=== PATIENT | female | born 1985 | race Hispanic/Latino ===

== ENCOUNTER 2017-07-27 09:18 | Emergency (ER) | payer OTHER | END 2017-07-27 10:17 | disposition home or self-care (01) | LOC: M ED 09:18 | DX: N90.7 Vulvar cyst (principal) | CPT/HCPCS: 81025 ==

== ENCOUNTER 2017-09-23 12:58 | Emergency (ER) | payer OTHER | END 2017-09-23 13:36 | disposition home or self-care (01) | LOC: M ED 12:58 | DX: J02.0 Streptococcal pharyngitis (principal); R01.1 Cardiac murmur, unspecified; F17.210 Nicotine dependence, cigarettes, uncomplicated | CPT/HCPCS: 87880 ==

== ENCOUNTER → 2018-02-09 | Outpatient (CLI) | payer OTHER ==
[2018-02-09 13:56] LABS: BASO % 0.3 % (0.0-1.0); EOS # 0.1 10^3/uL (0.0-0.50); HEMOGLOBIN 13.5 g/dl (12.0-15.5); LYMPH # 1.9 10^3/uL (1.5-4.5); LYMPH % 32.4 % (24.0-44.0); MEAN CORPUSCULAR HEMOGLOBIN 32.4 pg (27.0-33.0); MEAN CORPUSCULAR HGB CONC 34.6 g/dl (32.0-36.5); MEAN CORPUSCULAR VOLUME 93.5 fl (80.0-96.0); MONO # 0.8 10^3/uL (0.0-0.8); MONO % 13.6 % (0.0-5.0); NEUTROPHILS # 3.1 10^3/uL (1.8-7.7); NEUTROPHILS % 52.7 % (36.0-66.0); PLATELET COUNT, AUTOMATED 299 10^3/uL (150-450); RED BLOOD COUNT 4.17 10^6/uL (4.00-5.40); RED CELL DISTRIBUTION WIDTH 13.6 % (11.5-14.5); WHITE BLOOD COUNT 5.8 10^3/uL (4.0-10.0)
[2018-02-09 14:47] LABS: HEPATITIS C VIRUS ABY INDEX 0.1 INDEX (<0.8)
[2018-02-09 14:47] LABS: HBsAg Prenatal NEGATIVE (NEGATIVE); HIV 1&2 SCREEN CENTAUR NEGATIVE (NEGATIVE); RUBELLA IgG QUALITATIVE IMMUNE (IMMUNE)
[2018-02-09 15:49] LABS: CHLAMYDIA DNA AMPLIFICATION NEGATIVE (NEGATIVE); GC DNA AMPLIFICATION NEGATIVE (NEGATIVE)
== END ==
LOC: M SMT 11:25
DX: Z36.89 Encounter for other specified antenatal screening (principal)
CPT/HCPCS: 86762

== ENCOUNTER → 2018-03-08 | Outpatient (CLI) | payer OTHER ==
[~2018-03-08] MED LIST: MAGICMW MT; PENI500T PO
[2018-03-08 13:37] LABS: FREE T4 0.87 NG/DL (0.76-1.46); THYROID STIMULATING HORMONE 0.785 uIU/ML (0.358-3.740)
== END ==
LOC: M SMT 10:36
PROVIDERS: ATTEND Advanced Practice Midwife
DX: O26.811 Pregnancy related exhaustion and fatigue, first trimester (principal)

== ENCOUNTER → 2018-04-05 | Outpatient (CLI) | payer OTHER | LOC: M SMT 10:44 | PROVIDERS: ATTEND Advanced Practice Midwife | DX: Z34.82 Encounter for supervision of other normal pregnancy, second trimester (principal); Z36.89 Encounter for other specified antenatal screening ==

== ENCOUNTER → 2018-04-23 | Outpatient (CLI) | payer OTHER ==
--- NOTE | 2018-04-23 11:36 | REP ---
Clinical: Anatomical evaluation. Comparison: None . Findings: Examination demonstrates a single live intrauterine in cephalic presentation. motion is identified by technologist. Placenta is noted posterior and grade grade zero without evidence for placenta previa or abruption. Amniotic fluid volume is normal. Cervix measures 3.3 cm in length and appears closed. No evidence for nuchal cord. Gestational age by LMP 17 weeks 6 days with IDALMIS 09/25/2018 . Gestational age by current measurements 18 weeks 3 days with IDALMIS 09/21/2018 . FHR equals 132 beats per minute. BPD 4.1 cm 18 weeks 3 days HC 15.0 cm 18 weeks 0 days AC 12.5 cm 18 weeks 1 day FL 2.9 cm 18 weeks 5 days HL 2.7 cm 18 weeks 4 days HC/AC ratio 1.19 Estimated weight 239 grams ( 67th percentile). Anatomical assessment demonstrates normal structures including cranium, choroid plexus, cavum, cerebellum/posterior fossa, facial features, lungs, four-chamber heart/ventricular outflow tracts, diaphragm, stomach, cord insertion/three-vessel cord, kidneys/bladder, spine, and extremities. Impression: Single live intrauterine in cephalic presentation demonstrating appropriate interval growth. Anatomical assessment is complete and essentially normal. Mild renal pelviectasis falls within normal range for age. Electronically Signed by Fabrice Hi MD 04/23/2018 11:21 A
== END ==
LOC: M RAD 10:31
PROVIDERS: ATTEND Advanced Practice Midwife
DX: Z34.82 Encounter for supervision of other normal pregnancy, second trimester (principal); Z3A.18 18 weeks gestation of pregnancy

== ENCOUNTER → 2018-06-29 | Outpatient (REF) | payer OTHER | LOC: M LAB REF 12:44 | PROVIDERS: ATTEND Advanced Practice Midwife | DX: Z34.82 Encounter for supervision of other normal pregnancy, second trimester (principal) ==

== ENCOUNTER 2018-07-01 10:31 | Outpatient (CLI) | payer OTHER ==
[~2018-07-01] VITALS: Ht 157.5 cm; Wt 58.2 kg
[2018-07-01 10:50] VITALS: BP 109/61
== END 2018-07-01 11:50 | disposition home or self-care (01) ==
LOC: M LDO 10:31
PROVIDERS: ATTEND Specialist
DX: O26.852 Spotting complicating pregnancy, second trimester (principal); Z3A.27 27 weeks gestation of pregnancy

== ENCOUNTER → 2018-07-11 | Outpatient (CLI) | payer OTHER ==
[2018-07-11 13:52] LABS: HEMATOCRIT 36.8 % (36.0-47.0); HEMOGLOBIN 12.1 g/dl (12.0-15.5); MEAN CORPUSCULAR HEMOGLOBIN 31.9 pg (27.0-33.0); MEAN CORPUSCULAR HGB CONC 32.9 g/dl (32.0-36.5); MEAN CORPUSCULAR VOLUME 97.1 fl (80.0-96.0); PLATELET COUNT, AUTOMATED 237 10^3/uL (150-450); RED BLOOD COUNT 3.79 10^6/uL (4.00-5.40); WHITE BLOOD COUNT 7.3 10^3/uL (4.0-10.0)
== END ==
LOC: M LAB 12:11
PROVIDERS: ATTEND Advanced Practice Midwife
DX: Z34.82 Encounter for supervision of other normal pregnancy, second trimester (principal)

== ENCOUNTER → 2018-08-28 | Outpatient (REF) | payer OTHER | LOC: M LAB REF 16:57 | PROVIDERS: ATTEND Advanced Practice Midwife | DX: Z34.83 Encounter for supervision of other normal pregnancy, third trimester (principal) ==

== ENCOUNTER → 2018-08-28 | Outpatient (CLI) | payer OTHER | LOC: M SMT 15:36 | PROVIDERS: ATTEND Advanced Practice Midwife | DX: Z34.83 Encounter for supervision of other normal pregnancy, third trimester (principal); Z36.89 Encounter for other specified antenatal screening ==

== ENCOUNTER 2018-09-17 23:12 | Inpatient (IN) | payer OTHER ==
[~2018-09-17] VITALS: Ht 160 cm; Wt 59.8 kg
[2018-09-17] MEDS ORDERED: LACTATED RINGER'S 1000 ML IV STA (23:24)
[2018-09-17] MEDS ORDERED: OXYTOCIN 30 UNITS IN 0.9% NaCl 500ML IV BAG (J2590) As Ordered ONE (23:33)
[2018-09-17 23:47] VITALS: BP 116/65
[2018-09-18 00:14] LABS: HEMATOCRIT 40.5 % (36.0-47.0); HEMOGLOBIN 13.6 g/dl (12.0-15.5); MEAN CORPUSCULAR HEMOGLOBIN 32.1 pg (27.0-33.0); MEAN CORPUSCULAR HGB CONC 33.6 g/dl (32.0-36.5); MEAN CORPUSCULAR VOLUME 95.5 fl (80.0-96.0); PLATELET COUNT, AUTOMATED 251 10^3/uL (150-450); RED BLOOD COUNT 4.24 10^6/uL (4.00-5.40); WHITE BLOOD COUNT 7.6 10^3/uL (4.0-10.0)
[2018-09-18] MEDS ORDERED: FENTANYL 2MCG/ML ROPIVACAINE 0.2% IN 0.9% NACL 100ML IVBAG As Ordered ONE (00:25)
[2018-09-18] MEDS ORDERED: OXYTOCIN DRIP 30 UNITS in APPROPRIATE DILUENT 1 EA IV SCH (02:08)
[2018-09-18] MEDS ORDERED: ANUSOL HC CREAM 30GM TOP PRN (02:15)
[2018-09-18] MEDS ORDERED: DOCUSATE SODIUM 100 MG CAP PO PRN (02:15)
[2018-09-18] MEDS ORDERED: IBUPROFEN 600 MG TAB PO PRN (02:15)
[2018-09-18] MEDS ORDERED: RHOGAM 300 MCG (1500 IU) INJ (J2790) IM SCH (02:15)
[2018-09-18] MEDS ORDERED: DIBUCAINE 1% OINTMENT 30GM TOP PRN (02:15)
[2018-09-18] MEDS ORDERED: ACETAMINOPHEN TAB 650MG DOSE (2X325MG) PO PRN (02:15)
[2018-09-18] MEDS ORDERED: MEASLES,MUMPS,RUBELLA VACCINE INJ (MMR-II) (90707) SC SCH (02:15)
[2018-09-18] MEDS ORDERED: METHYLERGONOVINE MALEATE 0.2 MG TAB PO PRN (02:15)
[2018-09-18] MEDS ORDERED: OXYTOCIN INJ 10 UNITS/ML VIAL (J2590) IM ONE (02:15)
[2018-09-18] MEDS: IBUPROFEN 800 MG TAB PO PRN ×3 (02:24→23:36)
[2018-09-18 04:20] VITALS: BP 107/66
[2018-09-18] MEDS: ACETAMINOPHEN 500 MG TAB PO PRN ×3 (04:23→21:44)
[2018-09-18 06:46] VITALS: BP 111/64
[2018-09-18] MEDS: PRENATAL VITAMINS CHEWABLE TABLET PO SCH (09:19)
[2018-09-18 18:00] VITALS: BP 110/53
--- NOTE | 2018-09-18 18:55 | HPE ---
DATE OF ADMISSION: 09/17/2018 HISTORY OF PRESENT ILLNESS: Patient is a 33-year-old female who is a 3, para 2-0-0-2 at 38 weeks, 6 days gestation with an estimated date of delivery (IDALMIS) of 09/25/2018 based off of her first-trimester ultrasound and consistent with her last menstrual period. Patient initiated care in her first trimester with [facility]. Her has been complicated by a history of a ventral septal defect, which she had a cardiology appointment for during this , which shows a small ventral defect without hemodynamic changes or cardiovascular changes. She presents to labor and delivery with complaints of contractions every 3 minutes. She reports active movement. She report some vaginal bleeding. MEDICAL PROBLEMS: Ventral septal defect (VSD). SURGICAL HISTORY: No history of surgical procedures. FAMILY HISTORY: Diabetes. SOCIAL HISTORY: Patient is single. She is a former smoker and reports quitting with . She denies any history of physical abuse or emotional or sexual abuse. She denies any history of alcohol or drug abuse prior to or during . She denies any history of sexually transmitted infections. PAST PREGNANCIES: In June 2008 at 40 weeks, patient had a spontaneous vaginal delivery of a living male, weighing 6 pounds 7 ounces. In August 2014 at 39 weeks, the patient had a living male by vaginal delivery weighing 6 pounds 7 ounces with no complications. LABORATORIES: Blood type is O positive. Antibody screen is negative. Hemoglobin and hematocrit 13.5 and 39 with platelets of 299. Rubella immune. VDRL nonreactive. Urine: No growth. Hepatitis B surface antigen negative, HIV negative. Hepatitis C nonreactive. Gonorrhea and chlamydia both negative. Panorama shows a normal male with low risk aneuploidy screening. Diabetes screen was 122 with a hemoglobin and hematocrit in the third trimester of 12.1 and 36.8 and platelets of 237. GBS is negative. heart rate 130, moderate variability, positive accelerations. No decelerations. Contractions are every 2-4 minutes. Sterile vaginal exam (SVE): 4 cm dilated 100% effaced, 0 station with a bulging bag of water. Noted a moderate amount of vaginal bleeding with cervical exam. VITAL SIGNS: Temperature is 98.6, respiratory rate is 16, blood pressure is 116/65, heart rate is 93. PHYSICAL EXAMINATION: GENERAL: Alert and oriented times three. RESPIRATORY: Regular rate with no use of accessory muscles. ABDOMEN: Gravid and nontender to touch. Cephalic presentation noted via vaginal exam and Glenn's. LOWER EXTREMITIES: No edema. No clonus. ASSESSMENT: Intrauterine (IUP) at 38.6 weeks gestation. Active labor. Negative GBS. Category 1 heart rate tracing. PLAN: Admit patient to labor and delivery. Saline lock and labs per unit protocol. Out of bed ad keyonna. Clear liquid diet. Anesthesia consult per patient's request. An 800 mL bolus of lactated Ringer's prior to epidural. Anticipate cervical change and spontaneous vaginal delivery.
--- NOTE | 2018-09-19 00:49 | DN ---
DATE: 09/18/2018 DELIVERY TIME AND DATE: 09/18/2018 at 0140. STATUS: Delivered. Spontaneous vaginal delivery. PROVIDER: Melodie Pennington CNM, WHNP ANESTHESIA: None. ESTIMATED BLOOD LOSS: 250. FINDINGS: Male, 6 pounds, 1 ounce, 2740 grams, score 9/9, compound left hand, meconium fluid, placenta abruption. The patient is a 33-year-old female who is now a 3, para 3-0-0-3 at 39 weeks gestation. She presented to labor and delivery in active labor and progressed to fully dilated at 0137. She was artificial ruptured to a moderate amount of meconium fluid at 0132. The patient pushed to a living male in the occiput anterior (OA) position with restitution to right occiput anterior (DANNY) at 0140. A left compound hand was noted with delivery of the head. The anterior shoulder delivered with ease and the corpus immediately followed. The baby was placed on the maternal abdomen, active and crying. The placenta delivered prior to cord being able to be clamped at 0140 making it consistent with a placental abruption. The cord was clamped and cut by the patient's mother. A three vessel cord was noted. The perineum, vagina and cervix was inspected and found to be intact. Uterine hemostasis was achieved via 10 mg of IV Pitocin due to maternal IV falling out after delivery of the placenta and uterine hemostasis was also achieved via fundal massage. Mom plans to breast and formula feed. She is naming her son, Yolanda. Mom and baby are in stable condition. All counts of instruments and sponges are correct.
[2018-09-19 06:00] VITALS: BP 104/62
[2018-09-19] MEDS: IBUPROFEN 800 MG TAB PO PRN ×2 (08:11→16:25)
[2018-09-19] MEDS: PRENATAL VITAMINS CHEWABLE TABLET PO SCH (08:11)
[2018-09-19] MEDS ORDERED: medroxyPROGESTERone ACET IM SUSP 150 MG/ML VIAL (J1050) IM ONE (09:00)
== END 2018-09-19 19:00 | disposition home or self-care (01) | DRG 560 ==
LOC: M LDI 23:12 → M OBS 09-18 04:19
PROVIDERS: ADMIT Advanced Practice Midwife; ATTEND Advanced Practice Midwife
PROC: 10E0XZZ Delivery of Products of Conception, External Approach (ICD-10-PCS; principal; 2018-09-19)
DX: O99.42 Diseases of the circulatory system complicating childbirth (principal); Z3A.38 38 weeks gestation of pregnancy; Z37.0 Single live birth; O32.6XX0 Maternal care for compound presentation, not applicable or unspecified; O45.93 Premature separation of placenta, unspecified, third trimester; O77.0 Labor and delivery complicated by meconium in amniotic fluid; I51.0 Cardiac septal defect, acquired; O45.8X3 Other premature separation of placenta, third trimester

== ENCOUNTER → 2019-01-04 | Outpatient (REF) | payer OTHER ==
[2019-01-04 19:19] LABS: CHLAMYDIA DNA AMPLIFICATION NEGATIVE (NEGATIVE); GC DNA AMPLIFICATION NEGATIVE (NEGATIVE)
== END ==
LOC: M LAB REF 16:51
PROVIDERS: ATTEND Advanced Practice Midwife
DX: Z12.4 Encounter for screening for malignant neoplasm of cervix (principal)

== ENCOUNTER 2019-08-02 21:36 | Emergency (ER) | payer OTHER ==
[~2019-08-02] VITALS: Ht 157.5 cm; Wt 61.4 kg
[2019-08-02] MEDS ORDERED: NS 1,000 ML IV ONE (21:45)
[2019-08-02 22:08] LABS: BASO % 0.3 % (0.0-1.0); EOS % 0.3 % (0.0-3.0); HEMOGLOBIN 11.6 g/dl (12.0-15.5); LYMPH # 1.9 10^3/uL (1.5-5.0); LYMPH % 25.1 % (24.0-44.0); MEAN CORPUSCULAR HEMOGLOBIN 31.2 pg (27.0-33.0); MEAN CORPUSCULAR HGB CONC 33.1 g/dl (32.0-36.5); MEAN CORPUSCULAR VOLUME 94.1 fl (80.0-96.0); MONO # 1.1 10^3/uL (0.0-0.8); MONO % 14.6 % (0.0-5.0); NEUTROPHILS # 4.4 10^3/uL (1.5-8.5); NEUTROPHILS % 59.2 % (36.0-66.0); PLATELET COUNT, AUTOMATED 281 10^3/uL (150-450); RED BLOOD COUNT 3.72 10^6/uL (4.00-5.40); WHITE BLOOD COUNT 7.5 10^3/uL (4.0-10.0)
[2019-08-02 22:22] LABS: INR 1.26; PARTIAL THROMBOPLASTIN TIME 20.1 SECONDS (25.0-38.4); PROTHROMBIN TIME 15.5 SECONDS (11.8-14.0)
[2019-08-02 22:32] LABS: BLOOD UREA NITROGEN 14 MG/DL (7-18); CALCIUM LEVEL 8.4 MG/DL (8.5-10.1); CARBON DIOXIDE LEVEL 19 MEQ/L (21-32); CHLORIDE LEVEL 106 MEQ/L (98-107); CREATININE FOR GFR 0.74 MG/DL (0.55-1.30); GLOMERULAR FILTRATION RATE > 60.0 (>60); GLUCOSE, FASTING 113 MG/DL (70-100); POTASSIUM SERUM 3.9 MEQ/L (3.5-5.1); SODIUM LEVEL 136 MEQ/L (136-145)
[2019-08-02] MEDS ORDERED: KETOROLAC 30 MG/ML 1ML VIAL IV ONE (23:00)
[2019-08-02 23:38] LABS: HEMATOCRIT 35.7 % (36.0-47.0); HEMOGLOBIN 12.1 g/dl (12.0-15.5)
[2019-08-03] MEDS ORDERED: MORPHINE 2 MG/ML 1ML VIAL (J2270) IV ONE
[2019-08-03] MEDS ORDERED: NORCO 5/325MG TABLET (BULK FOR ED) PO ONE (01:30)
[2019-08-03 01:45] VITALS: BP 109/69
== END 2019-08-03 02:17 | disposition home or self-care (01) ==
LOC: M ED 21:36
DX: O03.1 Delayed or excessive hemorrhage following incomplete spontaneous abortion (principal)
CPT/HCPCS: 80048; 85014; 85018; 85025; 85610; 85730; 86850; 86900; 86901; 96374; 96375; 99285; J1885; J2270